=== PATIENT | male | born 1965 | race Caucasian/White ===

== ENCOUNTER → 2017-02-12 | Outpatient (CLI) | payer BC ==
[~2017-02-12] MED LIST: ATOR10TA60 PO; PIOG1TAB34 PO; VALS320T2 PO
--- NOTE | 2017-02-12 12:43 | RAD ---
Radionuclide gastric emptying study, 02/12/2017: History: Abdominal pain The study was performed utilizing a solid test meal radiolabeled with 2 mCi of technetium 99m sulfur colloid. The time to half empty of the test meal from the patient's stomach was estimated at 60 minutes. A normal T1/2 is 60 minutes +/- 30 minutes. IMPRESSION: Normal gastric emptying time.
== END | disposition home or self-care (01) ==
LOC: NM 09:30
PROVIDERS: ATTEND Internal Medicine Gastroenterology
DX: R10.13 Epigastric pain (principal); I10 Essential (primary) hypertension; E11.9 Type 2 diabetes mellitus without complications; Z87.19 Personal history of other diseases of the digestive system
CPT/HCPCS: 78264; A9541

== ENCOUNTER → 2017-03-08 | Outpatient (CLI) | payer BC ==
[2017-03-08] MEDS: BARIUM SULFATE 60% 355 ML SUSP PO ONE (08:43)
--- NOTE | 2017-03-08 10:23 | RAD ---
Small bowel follow-through study 03/08/2017 Clinical history: Generalized abdominal pain with 30 pound weight loss over the last 6 months. Technique: A small bowel follow-through study was performed under radiographic and intermittent fluoroscopic control. The total fluoroscopic time for this study was 0.6 minutes. Two digital spot radiographs of the right lower quadrant of the abdomen were obtained. Findings: Comparison is made to the patient's CT scan of the abdomen and pelvis dated 12/25/2016. An AP digital radiograph of the abdomen/pelvis was obtained as a casting molder image. The abdominal bowel gas pattern is nonobstructive. A moderate amount of stool is seen throughout the colon. No radiopaque calculus is seen. The osseous structures are grossly intact. The mucosal pattern of the duodenum, jejunum, ileum and terminal ileum are within normal limits. The small bowel transit time is within normal limits. The cecum is in its normal location within the right lower quadrant of the abdomen. No small bowel wall thickening is seen. No extrinsic mass effect upon the small intestine is seen. Impression: Negative study.
== END | disposition home or self-care (01) ==
LOC: RAD 08:06
PROVIDERS: ATTEND Internal Medicine Gastroenterology
DX: R10.84 Generalized abdominal pain (principal); R63.4 Abnormal weight loss
CPT/HCPCS: 74250

== ENCOUNTER → 2017-03-14 | Outpatient (CLI) | payer BC ==
--- NOTE | 2017-03-14 10:29 | RAD ---
Lumbar spine, 3 views, 03/14/2017: History: Back pain, radiculopathy The lateral views are suboptimal due to patient rotation. The lumbar vertebral heights are well-maintained. The intervertebral disc spaces are well preserved. There are mild scattered marginal spurs. There is residual contrast material in the colon from a recent small bowel series. The paraspinous soft tissues are otherwise unremarkable. IMPRESSION: 1. Mild scattered marginal spurring. 2. No acute lumbar spine abnormality is detected.
== END | disposition home or self-care (01) ==
LOC: DXRADRC 10:11
PROVIDERS: ATTEND Physician Assistant
DX: G57.90 Unspecified mononeuropathy of unspecified lower limb (principal); M54.5 Low back pain
CPT/HCPCS: 72100

== ENCOUNTER → 2017-03-28 | Outpatient (CLI) | payer BC ==
[~2017-03-28] MED LIST changes: +IOHEXOL 300 MG/ML 75 ML VIAL. IV ONE
[2017-03-28 11:32] LABS: CREATININE 0.9 mg/dL (0.7-1.3)
--- NOTE | 2017-03-28 12:19 | RAD ---
Indication abdominal pain. Weight loss. CTA targeted to the abdominal aorta and its major vessels was performed. MIP images were generated and reviewed. Sagittal and coronal reformatted images were also generated and reviewed. Approximately 75 cc of Omnipaque 300 was administered. Note is made of a previous CT examination of the abdomen and pelvis December 25, 2016. The lung bases are clear. The liver and spleen appear unremarkable. The gallbladder appears grossly normal. No adrenal or renal pathology is seen and the pancreas appears normal. A mass inflammatory process or acute finding in the abdomen is not seen. Significant central or retroperitoneal adenopathy is not apparent. No acute or significant finding is seen in the pelvis. Prostate is mildly The abdominal aorta is unremarkable. The celiac and SMA are widely patent. There are single main renal arteries which appear widely 8 the ZAHRAA is patent. The common iliac arteries appear normal and the internal and external iliac arteries appear IMPRESSION: No acute or significant finding seen in the abdomen or pelvis. No evidence of abdominal mass. Slightly enlarged prostate. Normal abdominal aorta and major blood vessels off same PQRS Compliance Statement: One or more of the following individualized dose reduction techniques were utilized for this examination: 1. Automated exposure control 2. Adjustment of the mA and/or kV according to patient size 3. Use of iterative reconstruction technique
== END | disposition home or self-care (01) ==
LOC: CT 10:28
PROVIDERS: ATTEND Internal Medicine Gastroenterology
DX: N40.0 Benign prostatic hyperplasia without lower urinary tract symptoms (principal); I10 Essential (primary) hypertension; R63.4 Abnormal weight loss
CPT/HCPCS: 36415; 74174; 82565; 84520; Q9967

== ENCOUNTER → 2017-09-16 | Outpatient (CLI) | payer BC ==
[~2017-09-16] MED LIST changes: -IOHEXOL 300 MG/ML 75 ML VIAL. IV ONE
--- NOTE | 2017-09-16 10:38 | RAD ---
INDICATION: NEUROPATHY COMPARISON: None. TECHNIQUE: Axial CT images were obtained through the lumbar spine. FINDINGS: No definite acute fracture. Lumbar spine alignment is well maintained without a definite subluxation. There is some mild facet and ligamentum flavum hypertrophy. No significant central canal or neural foraminal stenosis at L1-2. No significant central canal or neural foraminal stenosis at L2-3. Mild disc bulge with mild encroachment on the inferior aspect of the neural foramina bilaterally at L3-4 without evidence of high-grade stenosis. At L4-5 there is osteophyte formation at the vertebral body endplates as well as partial calcification of the disc. There is a broad-based posterior disc protrusion with mild central canal narrowing. Moderate bilateral neural foraminal narrowing. Mild posterior disc protrusion at L5-S1 without central canal narrowing. Moderate left greater than right neural foraminal narrowing. IMPRESSION: No evidence of acute fracture of lumbar spine. There is evidence of degenerative changes of the lumbar spine including disc protrusions and osteophyte formation with central canal and neural foraminal stenosis as detailed above. This is most severe within the lower lumbar spine including at the L4-5 level. PQRS Compliance Statement: One or more of the following individualized dose reduction techniques were utilized for this examination: 1. Automated exposure control 2. Adjustment of the mA and/or kV according to patient size 3. Use of iterative reconstruction technique
--- NOTE | 2017-09-16 10:51 | RAD ---
INDICATION: NEUROPATHY COMPARISON: None. TECHNIQUE: Axial CT images were obtained through the sacrum and pelvis without contrast. FINDINGS: Small fat-containing left inguinal hernia. Urinary bladder is partially distended. Questionable mild indistinctness of adjacent fat. Within the right iliac bone there is a lucent focus measuring approximately 7 mm. No definite acute fracture or dislocation. There is a small osseous excrescence suspected extending off the medial aspect of the right proximal femur measuring up to about 8 mm. IMPRESSION: No definite acute fracture or dislocation. Subcentimeter lucent focus within the right iliac bone adjacent to sacroiliac joint. Could be from causes such as benign osseous demineralization but cannot exclude a small lytic lesion on this examination. This appears similar to prior exam. If the patient has a history or risk factors for neoplasm and further information is desired MRI or bone scan could be obtained. There is also a suspected small osseous excrescence off of the proximal aspect of the right femur medially. Could be from causes such as a small osteochondroma but the appearance is not specific. Mild questionable indistinctness of the fat adjacent to the urinary bladder. This is a questionable finding but would correlate with symptoms in the region to ensure that there is not a pathologic causes such as mild cystitis. PQRS Compliance Statement: One or more of the following individualized dose reduction techniques were utilized for this examination: 1. Automated exposure control 2. Adjustment of the mA and/or kV according to patient size 3. Use of iterative reconstruction technique
== END | disposition home or self-care (01) ==
LOC: CT 09:07
PROVIDERS: ATTEND Psychiatry & Neurology Neurology
DX: M48.061 Spinal stenosis, lumbar region without neurogenic claudication (principal); M51.26 Other intervertebral disc displacement, lumbar region; M47.896 Other spondylosis, lumbar region; M24.28 Disorder of ligament, vertebrae; M25.78 Osteophyte, vertebrae; K40.90 Unilateral inguinal hernia, without obstruction or gangrene, not specified as recurrent; N32.89 Other specified disorders of bladder; G62.9 Polyneuropathy, unspecified
CPT/HCPCS: 72131; 72192

== ENCOUNTER → 2021-02-17 | Outpatient (CLI) | payer BC ==
[~2021-02-17] MED LIST changes: -PIOG1TAB34 PO; +PIOG1TAB8 PO
--- NOTE | 2021-02-17 17:20 | RAD ---
XR CHEST 2V INDICATION: Reason: SHORT OF BREATH, COVID 02/01/21, FATIGUE, COUGH. / Spl. Instructions: / History: . COMPARISON STUDY: None. FINDINGS: Lungs: Normal lung volume. Patchy right greater than left lung opacities. Pleura: No pleural effusion or pneumothorax. Heart and Mediastinum: The cardiomediastinal silhouette is normal. The great vessels of the thorax ar e normal. Bones and Soft Tissues: The bones and soft tissues are within normal limits. IMPRESSION: Patchy right greater than left lung opacities consistent with patient's history of infection. Electronically signed by: Mt Angulo MD (02/17/2021 5:18 PM) [id number]
== END ==
LOC: RAD 13:39
PROVIDERS: ATTEND Physician Assistant
DX: R05 Cough (principal); R06.02 Shortness of breath; R53.83 Other fatigue; Z86.16 Personal history of COVID-19
CPT/HCPCS: 71046